=== PATIENT | male | born 1955 | race Caucasian/White ===

== ENCOUNTER 2022-12-02 07:52 | Outpatient (CLI) | payer MEDICARE, OTHER, SELFPAY | END 2022-12-02 07:53 | disposition home or self-care (01) | PROVIDERS: PCP Family Medicine; Visit Provider Family Medicine | DX: M54.16 Radiculopathy, lumbar region (principal); M51.36 Other intervertebral disc degeneration, lumbar region | CPT/HCPCS: 64483; J1100; Q9966 ==

== ENCOUNTER 2024-02-14 06:01 | Day surgery (SDC) | payer MEDICARE, OTHER, SELFPAY ==
[2024-02-14 06:43] VITALS: BP 139/85; PULSE 50; RESP 16; TEMP 36.7; O2SAT 97
[2024-02-14 06:48] VITALS: BMI 25.2
[2024-02-14] MEDS: LACTATED RINGERS 1000 ML 1,000 ML 100 ML IV (06:51)
[2024-02-14] MEDS: SODIUM CHLORIDE 0.9 % (FLUSH) 10 ML SYRINGE IVF (06:51)
--- NOTE | 2024-02-14 07:06 | W.PM.H&PU ---
History & Physical Update History & Physical Update H&P Reviewed and patient assessed: No changes noted
[2024-02-14] MEDS: CEFAZOLIN 2 GM in 0.9 % SODIUM CHLORIDE Mini-bag 100 ML IVPB (07:15)
[2024-02-14] MEDS: BUPIVACAINE 0.5% 30 ML INJECTION (07:37)
--- NOTE | 2024-02-14 08:20 | PM.ORPRC ---
Procedure Note Date of procedure: 02/14/24 Procedure: PREOPERATIVE DIAGNOSIS: 1. Right elbow olecranon bursitis, recurrent POSTOPERATIVE DIAGNOSIS: 1. Right elbow olecranon bursitis, recurrent PROCEDURE: 1. Right elbow olecranon open bursectomy SURGEON: Jann Avelar MD. AUTOMATIC LATHE TENDER: Ezekiel Auguste PA-C - Of note, an child care center assistant director was critical for this case to aid in patient positioning, tissue retraction, limb manipulation/positioning, and closure. ANESTHESIA: Mac plus local anesthetic IMPLANTS: None TOURNIQUET: 28 minutes at 225 torr COMPLICATIONS: None evident INDICATIONS: The patient is a pleasant 68-year-old male who has experienced recurrent right posterior elbow swelling, discomfort, and dysfunction. He previously underwent open right olecranon bursectomy in the remote past. This did well for number of years. Unfortunately, this has recurred. He has not had any fevers or chills. It is affecting his daily life, however. DESCRIPTION OF PROCEDURE: Following a thorough discussion of risks, benefits, and alternatives consent was obtained and the right elbow was marked. The patient was brought to the operating room and placed supine on the operating table. Induction of anesthesia was undertaken. 2 g IV Ancef was administered within 1 hr of incision preoperatively. Proper time-out was performed identifying proper patient, site, procedure. The operative extremity was prepped and draped in the appropriate sterile fashion using ChloraPrep after the patient was positioned supine with all bony prominences well padded. Following exsanguination of the operative extremity, a longitudinal, posterior skin incision was made along the olecranon bursa curving laterally around the olecranon tip. The bursa was excised, but 1 point puncture. A clear, non malodorous, slight dexter colored fluid was encountered. This was evacuated with suction. The majority of the bursa was taken now in the single piece. This was sent for permanent pathology. The remaining bursal connection to the skin and the deep tissue was excised cautiously with bipolar cautery. A small skin puncture was identified and eventually repaired with 4-0 nylon. Prior to complete closure, the right posterior elbow was thoroughly irrigated with normal saline, and closure performed in layered fashion with 3-0 Vicryl to close the pocket and 4-0 Monocryl for subcuticular closure. Dressings were applied, tourniquet deflated (prior to closure), and a posterior splint was applied. The patient was awoken from anesthesia and transferred to the PACU in stable condition. PLAN: 1. Nonweightbearing operative extremity. 2. Ice. 3. Elevate. 4. Oxycodone for pain p.r.n. 5. Follow up with PA visit in 2 days. Removal of splint, repeat clinical check. Consider follow-up again at the 2 week elaina to monitor the posterior elbow thin skin wound. Then follow-up with me at the 6 week elaina.
[2024-02-14 08:45] VITALS: BP 112/64; PULSE 51; RESP 14; TEMP 36.3; O2SAT 95
[2024-02-14 09:00] VITALS: BP 103/67; PULSE 46; RESP 14; O2SAT 95
[2024-02-14 09:15] VITALS: BP 111/82; PULSE 49; RESP 16; O2SAT 96
[2024-02-14 09:30] VITALS: BP 122/75; PULSE 49; RESP 16; O2SAT 98
--- NOTE | 2024-02-14 13:33 | W.ANESCHARGE ---
Anesthesia Charges Start Date/Time Anesthesia Start Date: 02/14/24 Anesthesia Start Time: 07:13 Stop Date/Time Anesthesia Stop Date: 02/14/24 Anesthesia Stop Time: 08:47
== END 2024-02-14 09:46 | disposition home or self-care (01) ==
PROVIDERS: PCP Family Medicine; Visit Provider Orthopaedic Surgery Sports Medicine
PROC: (CPT 24105; principal; 2024-02-14 07:15)
DX: M70.21 Olecranon bursitis, right elbow (principal)
CPT/HCPCS: 24105; 00400; 88304; A4580; J0665; J0690; J1100; J2250; J2405; J2704; J3010; J3490; J7120